=== PATIENT | male | born 1990 | race Caucasian/White ===

== ENCOUNTER 2022-10-31 16:35 | Emergency (ER) | payer SELFPAY ==
[~2022-10-31] VITALS: Ht 175.3 cm; Wt 72.6 kg
[2022-10-31 17:02] VITALS: BP 141/87
--- NOTE | 2022-10-31 17:48 | NUR ---
Patient ambulated to bed 7.
--- NOTE | 2022-10-31 17:48 | NUR ---
PT AMBULATED TO ER BED 7
[2022-10-31 18:04] LABS: BASOPHILS # (AUTO) 0.1 K/uL (0.00-0.22); BASOPHILS % (AUTO) 0.9 % (0.0-2.0); EOSINOPHILS # (AUTO) 0.1 K/uL (0-0.4); EOSINOPHILS % (AUTO) 0.7 % (0.0-4.0); HEMATOCRIT 39.6 % (36-52); HEMOGLOBIN 13.9 g/dL (12.0-18.0); LYMPHOCYTES # (AUTO) 1.4 K/uL (2.0-11.5); LYMPHOCYTES % (AUTO) 15.3 % (20.5-51.1); MEAN CORPUSCULAR HEMOGLOBIN 32 pg (27-31); MEAN CORPUSCULAR HGB CONC 35 g/dL (33-37); MEAN CORPUSCULAR VOLUME 90.1 fL (80-94); MONOCYTES # (AUTO) 0.6 K/uL (0.8-1.0); MONOCYTES % (AUTO) 6.3 % (1.7-9.3); NEUTROPHILS # (AUTO) 6.9 K/uL (1.8-7.7); NEUTROPHILS % (AUTO) 76.8 % (42.2-75.2); PLATELET COUNT (AUTO) 260 K/uL (140-450); RED BLOOD CELL COUNT(AUTO) 4.39 MIL/uL (4.20-6.10); RED CELL DISTRIBUTION WIDTH 13.5 % (11.6-13.7); WHITE BLOOD COUNT (AUTO) 8.9 K/uL (4.8-10.8)
--- NOTE | 2022-10-31 18:21 | NUR ---
31 y/o male bib self for c/o increased heart rate for 15 minutes an hour ago. Patient states "he was just looking at emails when his heart started pounding." Reports pulse in the 150's. Current pulse is at 88. Denies any SOB, fevers or sick contacts. Denies taking any medication for symptoms. Medical History: Denies NKDA
[2022-10-31 18:29] LABS: ALBUMIN 4.1 g/dL (3.4-5.0); ANION GAP 11.8 (8-16); ASPARTATE AMINOTRANSFERASE 34 U/L (15-37); CARBON DIOXIDE 26.1 mmol/L (21-32); CHLORIDE 103 mmol/L (98-107); CREATININE 1.3 mg/dL (0.6-1.3); GFR ARICAN-AMERICAN 82 mL/min (>90); GLUCOSE 116 mg/dL (74-106); POTASSIUM 3.9 mmol/L (3.5-5.1); SODIUM SERUM 137 mmol/L (136-145); THYROID STIMULATING HORMONE 1.17 uIU/mL (0.34-3.74); TOTAL BILIRUBIN 0.3 mg/dL (0.0-1.0); UREA NITROGEN, BLOOD 32 mg/dL (7-18)
--- NOTE | 2022-10-31 18:52 | NUR ---
KYE Hines re-evaluating patient at bedside.
[2022-10-31 19:01] VITALS: BP 127/61
--- NOTE | 2022-10-31 19:01 | NUR ---
Patient discharged with v/s stable. Written and verbal after care instructions given. Patient verbalized understanding. Ambulatory with steady gait. All questions addressed prior to discharge. Advised to follow up with PMD. COPY OF LABWORK AND X-RAY GIVEN TO PATIENT.
== END 2022-10-31 19:01 | disposition home or self-care (01) ==
LOC: MED 16:35
DX: R00.2 Palpitations (principal); R42 Dizziness and giddiness; R03.0 Elevated blood-pressure reading, without diagnosis of hypertension; F41.9 Anxiety disorder, unspecified
CPT/HCPCS: 36415; 71045; 80053; 84443; 84484; 85025; 93005; 99285; Q0092